=== PATIENT | male | born 1960 | race Two or more races ===

== ENCOUNTER 2019-07-01 21:39 | Emergency (ER) | payer SELFPAY ==
[~2019-07-01] VITALS: Ht 172.7 cm; Wt 87.5 kg
[2019-07-01 22:39] VITALS: BP 149/81
[2019-07-02] MEDS ORDERED: IBUPROFEN 600 MG TABLET PO ONE ×2 (00:07→00:30)
== END 2019-07-02 01:24 | disposition home or self-care (01) ==
LOC: ER 21:42
DX: S00.211A Abrasion of right eyelid and periocular area, initial encounter (principal); S09.8XXA Other specified injuries of head, initial encounter; Z98.890 Other specified postprocedural states; V49.59XA Passenger injured in collision with other motor vehicles in traffic accident, initial encounter; Y93.89 Activity, other specified; Y92.488 Other paved roadways as the place of occurrence of the external cause; Y99.8 Other external cause status
CPT/HCPCS: 70450-TC